=== PATIENT | male | born 1945 | race Caucasian/White ===

== ENCOUNTER 2020-04-15 11:15 | Emergency (ER) | payer MEDICARE, MEDICAID ==
[~2020-04-15] VITALS: Ht 175.3 cm; Wt 77.3 kg
[~2020-04-15 11:15] MED LIST: CYCL-1 PO
[2020-04-15 11:53] VITALS: BP 117/74
== END 2020-04-15 11:55 | disposition home or self-care (01) ==
LOC: ER 11:15
DX: R05 Cough (principal); Z20.828 Contact with and (suspected) exposure to other viral communicable diseases; Z79.899 Other long term (current) drug therapy
CPT/HCPCS: 36415; 99282

== ENCOUNTER 2022-03-12 06:07 | Emergency (ER) | payer MEDICARE, MEDICAID ==
[~2022-03-12] VITALS: Ht 170.2 cm; Wt 80.0 kg
[2022-03-12] MEDS ORDERED: FAMC500T23 PO (06:48)
[2022-03-12] MEDS ORDERED: LIDO30CR TOP (06:48)
[2022-03-12] MEDS ORDERED: PRED20TA PO (06:48)
[2022-03-12] MEDS ORDERED: acetaminophen 325mg tablet PO ONE (06:50)
[2022-03-12] MEDS ORDERED: LIDOCAINE 5% OINTMENT 35GM TP ONE (06:50)
[2022-03-12 07:31] VITALS: BP 141/76
== END 2022-03-12 07:38 | disposition home or self-care (01) ==
LOC: ER 06:08
DX: B02.9 Zoster without complications (principal)
CPT/HCPCS: 99284